=== PATIENT | male | born 1950 | race Caucasian/White ===

== ENCOUNTER → 2017-03-25 | Outpatient (CLI) | payer MEDICARE, OTHER | END | disposition short-term general hospital (02) | LOC: CLCARD 09:07 | DX: I25.10 Atherosclerotic heart disease of native coronary artery without angina pectoris (principal); I05.9 Rheumatic mitral valve disease, unspecified; E78.5 Hyperlipidemia, unspecified; Z98.890 Other specified postprocedural states; Z95.1 Presence of aortocoronary bypass graft ==